=== PATIENT | female | born 1960 ===

== ENCOUNTER 2021-08-07 07:02 | Day surgery (SDC) | payer OTHER ==
[~2021-08-07 07:02] MED LIST: TENORMIN25 MG
== END 2021-08-07 20:40 | disposition home or self-care (01) ==
LOC: CIR.AMB 07:02
PROVIDERS: ATTEND Orthopaedic Surgery Hand Surgery
DX: M24.832 Other specific joint derangements of left wrist, not elsewhere classified (principal); Z20.822 Contact with and (suspected) exposure to COVID-19